=== PATIENT | male | born 1950 | race Caucasian/White ===

== ENCOUNTER → 2020-06-17 12:25 | Outpatient (CLI) | payer MEDICARE, OTHER, SELFPAY ==
[2020-06-17 13:57] LABS: Erythrocyte Sedimentation Rate 8 mm/hr (0-20)
[2020-06-17 14:11] LABS: CRP 4.54 mg/L (0.0-3.0)
== END ==
PROVIDERS: Visit Provider Internal Medicine Pulmonary Disease
DX: R06.00 Dyspnea, unspecified (principal)
CPT/HCPCS: 36415; 85379; 85652; 86140

== ENCOUNTER → 2020-06-25 08:13 | Outpatient (CLI) | payer MEDICARE, OTHER, SELFPAY ==
--- NOTE | 2020-06-25 08:15 | CT_ITS ---
STUDY: CT CHEST WITHOUT CONTRAST REASON FOR EXAM: Male, 70 years old. DYSPNEA, ELEV D DIMER RADIATION DOSAGE (If Supplied By Facility): CTDIvol = ( 11.57 ) mGy, DLP = ( 410.66 ) mGycm TECHNIQUE: Transaxial imaging was performed without the administration of intravenous contrast material. Multiplanar coronal and sagittal images were reformatted. Individualized dose optimization techniques were used for this CT. COMPARISON: None. FINDINGS: Hyperinflation. Mild emphysematous changes. Nonspecific increased interstitial markings in both lungs worse in the lower lobes with areas of honeycombing and scarring. Findings are in keeping with the chronic interstitial fibrosis. There is no demonstrated pleural abnormality. There are calcifications of the coronary arteries. There are multiple small lymph nodes within the mediastinum, which are normal in size and morphology most compatible with reactive lymph hyperplasia. Normal hilar regions. Normal unenhanced pulmonary arteries. Normal aorta arch and descending thoracic aorta. There are degenerative changes of the thoracic spine. Small hiatal hernia. CT/Chest without Contrast IMPRESSION: Hyperinflation and emphysematous changes with evidence of chronic interstitial fibrosis. Electronically Signed: Neftali Mcmahon MD at 9:33 EST , Service support ,
== END ==
PROVIDERS: Visit Provider Internal Medicine Pulmonary Disease
DX: R06.00 Dyspnea, unspecified (principal); R79.89 Other specified abnormal findings of blood chemistry
CPT/HCPCS: 71250

== ENCOUNTER → 2021-04-29 09:54 | Outpatient (CLI) | payer MEDICARE, OTHER, SELFPAY ==
[2021-04-29 12:19] LABS: Absolute Lymphocyte Count 1.72 X10^3/uL (0.83-4.51); Absolute Neutrophil Count 3.2 X10^3/uL (2.0-7.7); Basophil# 0.06 X10^3/uL; Eosinophil# 0.25 X10^3/uL; Eosinophils% 4.2 % (0-5); Hematocrit 39.2 % (40-54); Hemoglobin 13.2 g/dL (13.0-16.5); Lymphocyte # 1.72 X10^3/ul (0.83-4.51); Mean Corp Hgb Conc 33.7 g/dL (32-36); Mean Corpuscular Hgb 29.6 pg (27.0-32.0); Mean Corpuscular Volume 87.9 fL (80-94); Mean Platelet Vol. 9.5 fl (6.2-12.0); Monocyte# 0.68 X10^3/uL; Monocyte% 11.4 % (0-10); NRBC Flagged by Analyzer 0 % (0-5); Neutrophil # 3.21 X10^3/uL (2.7-7.7); Neutrophil % 54.1 % (47-70); Platelet Count 403 K/mm3 (150-450); RBC Distribution Width CV 13.2 % (11.6-14.6); RBC Distribution Width SD 42.9 fl (35.1-43.9); Red Blood Count 4.46 M/mm3 (4.6-6.2); White Blood Count 5.9 K/mm3 (4.4-11.0)
[2021-04-29 12:22] LABS: Erythrocyte Sedimentation Rate 25 mm/hr (0-20)
[2021-04-29 12:43] LABS: AST(SGOT) 17 U/L (15-37); Alanine Aminotransfer ALT/SGPT 27 U/L (16-61); Albumin, Serum 3.6 g/dL (3.2-5.0); Alkaline Phosphatase 94 U/L (45-117); Bilirubin, Direct 0.13 mg/dL (0.00-0.30); CRP 7.63 mg/L (0.0-3.0); Globulin 4.3 g/dL (2.2-4.2); Protein, Total 7.9 g/dL (6.4-8.2)
[2021-04-30 15:08] LABS: Anti-Scleroderma-70 AB <0.2 AI (0.0-0.9); SJOGREN'S Anti-SS-A test < 0.2 AI (0.0-0.9); SJOGREN'S Anti-SS-B test < 0.2 AI (0.0-0.9)
[2021-04-30 19:35] LABS: ANTINUCLEAR ANTIBODIES DIRECT Negative (Negative); Anti-dsDNA Ab 9 IU/mL (0-9)
[2021-05-01 18:07] LABS: Angiotensin Convert Enzyme 63 U/L (14-82); Cytoplasmic Ab (C-ANCA) <1:20 titer (Neg:<1:20)
[2021-05-02 08:20] LABS: Anti-Smooth Muscle ABS 12 Units (0-19); CCP IgG Antibodies 7 units (0-19); Perinuclear Ab (P-ANCA) <1:20 titer (Neg:<1:20)
== END ==
PROVIDERS: Referring Provider Internal Medicine Pulmonary Disease; Visit Provider Internal Medicine Pulmonary Disease
DX: J84.10 Pulmonary fibrosis, unspecified (principal); R06.00 Dyspnea, unspecified
CPT/HCPCS: 36415; 80076; 82164; 83516; 85025; 85652; 86038; 86140; 86200; 86225; 86235; 86256; 86431

== ENCOUNTER 2021-06-12 13:00 | Outpatient (CLI) | payer MEDICARE, SELFPAY ==
--- NOTE | 2021-06-12 13:06 | RAD_ITS ---
STUDY: X-RAY CHEST REASON FOR EXAM: Male, 71 years old. PULMONARY FIBROSIS TECHNIQUE: PA and lateral views of the chest. COMPARISON: Comparison is made with prior study dated 04/29/2021. FINDINGS: Stable increased interstitial markings at the lung bases worse on the left side with areas of confluence. This is in keeping with the scarring. There is no demonstrated pleural abnormality. Normal size heart. Normal mediastinum and rm. Normal visualized pulmonary arteries. Normal visualized aortic arch and descending thoracic aorta. There is demineralization of the osseous structures. Normal visualized ribs, clavicles, and shoulders. There is no demonstrated abnormality of the visualized soft tissue structures of the upper abdomen. RAD/Chest PA and Lateral IMPRESSION: Stable examination. Electronically Signed: Neftali Mcmahon MD at 15:47 EST , Service support ,
== END 2021-06-12 23:59 | disposition short-term general hospital (02) ==
PROVIDERS: PCP Nurse Practitioner Family; Referring Provider Internal Medicine Pulmonary Disease; Visit Provider Internal Medicine Pulmonary Disease
DX: J84.10 Pulmonary fibrosis, unspecified (principal)
CPT/HCPCS: 71046

== ENCOUNTER 2021-08-01 14:31 | Outpatient (CLI) | payer MEDICARE, SELFPAY ==
[2021-08-01 17:35] LABS: Hematocrit 40.1 % (40-54); Hemoglobin 13.8 g/dL (13.0-16.5); Mean Corp Hgb Conc 34.4 g/dL (32-36); Mean Corpuscular Hgb 30.9 pg (27.0-32.0); Mean Corpuscular Volume 89.7 fL (80-94); Mean Platelet Vol. 9.2 fl (6.2-12.0); POSITIVE COUNT YES; POSITIVE MORPHOLOGY YES; Platelet Count 399 K/mm3 (150-450); RBC Distribution Width CV 14.3 % (11.6-14.6); RBC Distribution Width SD 46.5 fl (35.1-43.9); Red Blood Count 4.47 M/mm3 (4.6-6.2)
[2021-08-01 17:39] LABS: Differential Indicated MANUAL DIFF
[2021-08-01 18:04] LABS: ALB/GLOB Ratio 0.9 RATIO (0.9-2.4); AST(SGOT) 15 U/L (15-37); Alanine Aminotransfer ALT/SGPT 25 U/L (16-61); Albumin, Serum 3.7 g/dL (3.2-5.0); Alkaline Phosphatase 78 U/L (45-117); Anion Gap 8 (5-15); BUN 35 mg/dL (7-18); BUN/Creat Ratio 24.8 RATIO (10-20); Calcium,Total 9.9 mg/dL (8.5-10.1); Chloride 101 mmol/L (98-107); Creatinine, Serum 1.41 mg/dL (0.70-1.30); EST Glomerular Filtration Rate 53 mL/min (>60); Est Glom Filt Rate - Afr Amer 64 mL/min (>60); Glucose 114 mg/dL (74-106); Potassium 4.3 mmol/L (3.5-5.1); Protein, Total 7.7 g/dL (6.4-8.2); Sodium Level 134 mmol/L (136-145)
[2021-08-01 18:58] LABS: Basophil 1 % (0-1); Lymphocyte 12 % (19-41); Metamyelocyte 1 % (0-1); Monocyte 6 % (0-10); Myelocyte 3 % (0-0); Neutrophil-Band 7 % (0-5); Neutrophil-Segmented 70 % (47-70); Total Cells Counted 100 (MANUAL DIFF)
[2021-08-01 19:01] LABS: Absolute Neutrophil Count 7.7 X10^3/uL (2.0-7.7)
[2021-08-01 19:02] LABS: Platelet Estimate ADEQUATE (ADEQ); Red Cell Morphology N CHROM NORMAL (NORM C&C)
[2021-08-01 19:03] LABS: Anisocytosis RARE; Macrocytosis RARE
[2021-08-04 08:30] LABS: Hepatitis B Surface Antibody Non-Reactive; Hepatitis B Surface Antigen Non-Reactive (Nonreactive); Hepatitis C Antibody Non-Reactive (Nonreactive)
[2021-08-05 10:15] LABS: Pathologist Review Reviewed
[2021-08-06 00:06] LABS: QNTFERON TB Mitogen Value 8.55 IU/mL (.); QNTFERON TB Nil Value 0.02 IU/mL (.); QNTFERON TB1+ Ag Value 0.02 IU/mL (.); QNTFERON TB2+ Ag Value 0.01 IU/mL (.)
[2021-08-06 13:27] LABS: CCP IgG Antibodies 9 units (0-19); QNTIFERON TB Positive Criteria Negative (Negative)
== END 2021-08-01 23:59 | disposition home or self-care (01) ==
LOC: MTLAB 14:32
PROVIDERS: PCP Nurse Practitioner Family; Referring Provider Internal Medicine Rheumatology; Visit Provider Internal Medicine Rheumatology
DX: M05.79 Rheumatoid arthritis with rheumatoid factor of multiple sites without organ or systems involvement (principal); J84.10 Pulmonary fibrosis, unspecified; M17.0 Bilateral primary osteoarthritis of knee; N18.9 Chronic kidney disease, unspecified; E03.9 Hypothyroidism, unspecified; E78.5 Hyperlipidemia, unspecified
CPT/HCPCS: 36415; 80053; 85025; 86200; 86431; 86480; 86706; 86803; 87340

== ENCOUNTER 2021-08-14 10:08 | Outpatient (CLI) | payer MEDICARE, SELFPAY ==
[2021-08-14 12:21] LABS: Hematocrit 37.4 % (40-54); Mean Corp Hgb Conc 34.8 g/dL (32-36); Mean Corpuscular Hgb 31.9 pg (27.0-32.0); Mean Corpuscular Volume 91.7 fL (80-94); Mean Platelet Vol. 9.5 fl (6.2-12.0); Platelet Count 337 K/mm3 (150-450); RBC Distribution Width SD 47.3 fl (35.1-43.9); Red Blood Count 4.08 M/mm3 (4.6-6.2); White Blood Count 11.4 K/mm3 (4.4-11.0)
[2021-08-14 12:30] LABS: D-Dimer Quantitative (DVT/PE) 0.66 FEU/ug/m (0.27-0.49)
[2021-08-14 12:43] LABS: AST(SGOT) 20 U/L (15-37); Alanine Aminotransfer ALT/SGPT 25 U/L (16-61); Albumin, Serum 3.2 g/dL (3.2-5.0); Alkaline Phosphatase 84 U/L (45-117); Anion Gap 7 (5-15); Bilirubin, Direct 0.14 mg/dL (0.00-0.30); Chloride 99 mmol/L (98-107); Globulin 4.4 g/dL (2.2-4.2); Protein, Total 7.6 g/dL (6.4-8.2); Sodium Level 131 mmol/L (136-145)
== END 2021-08-14 23:59 | disposition home or self-care (01) ==
LOC: MTLAB 10:10
PROVIDERS: PCP Nurse Practitioner Family; Referring Provider Internal Medicine Pulmonary Disease; Visit Provider Internal Medicine Pulmonary Disease
DX: J84.10 Pulmonary fibrosis, unspecified (principal); Z79.899 Other long term (current) drug therapy
CPT/HCPCS: 36415; 80051; 80076; 83880; 85027; 85379

== ENCOUNTER 2021-08-18 16:45 | Inpatient (IN) | payer MEDICARE, SELFPAY ==
[2021-08-18] VITALS (9 sets, daily range): BP systolic 115–141; BP diastolic 70–94; PULSE 65–87; RESP 18–24; TEMP 36.6; O2SAT 91–97; BMI 29.7; BMI 27.8
--- NOTE | 2021-08-18 17:48 | EKG12_ITS ---
Test Reason : SOB Blood Pressure : / mmHG Vent. Rate : 079 BPM Atrial Rate : 079 BPM P-R Int : 136 ms QRS Dur : 084 ms QT Int : 360 ms P-R-T Axes : 053 020 041 degrees QTc Int : 412 ms Normal sinus rhythm Normal ECG Confirmed by DORIS LINDSEY, ROSEANN ([id number]), web content editor MAKENZIE DURBIN ([id number]) on 08/21/2021 9:28:48 AM Referred By: PRATIMA Confirmed By:ROSEANN GEORGE MD
[2021-08-18 18:11] LABS: Absolute Lymphocyte Count 1.36 X10^3/uL (0.83-4.51); Absolute Neutrophil Count 9.3 X10^3/uL (2.0-7.7); Basophil# 0.07 X10^3/uL; Basophil% 0.6 % (0-1); Hematocrit 38.8 % (40-54); Hemoglobin 13.5 g/dL (13.0-16.5); Lymphocyte # 1.36 X10^3/ul (0.83-4.51); Lymphocyte % 11.8 % (19-41); Mean Corp Hgb Conc 34.8 g/dL (32-36); Mean Corpuscular Hgb 31.5 pg (27.0-32.0); Mean Corpuscular Volume 90.4 fL (80-94); Mean Platelet Vol. 8.8 fl (6.2-12.0); Monocyte# 0.29 X10^3/uL; Monocyte% 2.5 % (0-10); NRBC Flagged by Analyzer 0 % (0-5); Neutrophil % 80.9 % (47-70); Platelet Count 442 K/mm3 (150-450); RBC Distribution Width CV 13.6 % (11.6-14.6); RBC Distribution Width SD 45.2 fl (35.1-43.9); Red Blood Count 4.29 M/mm3 (4.6-6.2); White Blood Count 11.5 K/mm3 (4.4-11.0)
--- NOTE | 2021-08-18 18:28 | ED.VIS.DYS ---
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 He states that he is on 4 L at baseline and when he sitting is fine when he ambulates it drops into the 60s at home. He has been doing this for a couple of weeks. Today when he saw his fire hose curer he was sent to the ER out of concern that he he may have another cause for his symptoms besides pulmonary fibrosis. The patient does not report any chest pain, fever, cough, chills. He does not have any abdominal pain, nausea, vomiting. He states that he feels great. No history of DVT/PE. No lower extremity edema. Denies black or bloody stools. Patient does take 30 mg of prednisone daily. He states that this breathing issue has worsened over the last couple of weeks. PFSH PFSH Home Medications azithromycin [Zithromax Z-Sonu] 250 mg PO DAILY 08/18/21 [History Last Taken 08/18/21] bupropion HCl 100 mg PO QHS 08/18/21 [History Last Taken 08/17/21] citalopram 40 mg PO DAILY 08/18/21 [History Last Taken 08/18/21] pravastatin 40 mg PO DAILY 08/18/21 [History Last Taken 08/18/21] prednisone 30 mg PO DAILY 08/18/21 [History Last Taken 08/18/21] trazodone 50 mg PO QHS 08/18/21 [History Last Taken 08/17/21] Allergy/AdvReac Type Severity Reaction Status Date / Time No Known Allergies Allergy Verified 08/18/21 16:47 Social History Smoking Status: Former smoker ROS ROS ED Constitutional Constitutional ED: Denies chills or fever(s) Eyes Eyes: Denies blurry vision or diplopia ENT ENT ED: Denies rhinorrhea or sore throat Cardiovascular Cardiovascular: Denies chest pain Respiratory/Chest Respiratory/Chest: Reports dyspnea and dyspnea on exertion; Denies cough Gastrointestinal Gastrointestinal: Denies abdominal pain, nausea or vomiting Genitourinary Genitourinary ED: Denies dysuria or hematuria Musculoskeletal Musculoskeletal: Denies arthralgias, myalgias or neck pain Integumentary Denies rash Neurologic Neurologic: Denies headache(s) or paresthesias Psychiatric Psychiatric: Denies anxiety or depression EXAM Physical Exam Const Vital Signs: 08/18/21 16:46 08/18/21 17:26 08/18/21 17:33 Temperature 97.8 F Temperature Source Temporal Pulse Rate 87 81 Respiratory Rate 24 H 20 H Respiratory Effort Short of Breath Labored Respiratory Depth Normal Respiratory Pattern Tachypnea Blood Pressure 133/82 H 141/94 H Blood Pressure Mean 99 109 Pulse Ox 97 92 Oxygen Delivery Method Nasal Cannula Nasal Cannula Nasal Cannula Oxygen Flow Rate (L/min) 4 4 08/18/21 17:48 08/18/21 19:19 08/18/21 21:17 Temperature 97.8 F Temperature Source Temporal Pulse Rate 75 65 Respiratory Rate 20 H 18 Respiratory Effort Respiratory Depth Respiratory Pattern Blood Pressure 130/73 H 140/93 H Blood Pressure Mean 92 108 Pulse Ox 96 95 Oxygen Delivery Method Nasal Cannula Nasal Cannula Oxygen Flow Rate (L/min) 4 4 6 Positive well nourished General Appearance ED: NAD; Negative for pallor HEENT Reports moist mucous membranes atraumatic Eyes PERRL and EOMs intact bilaterally General Eye ED: Negative for pale conjunctiva Neck no lymphadenopathy and supple Resp Auscultation: rales diffuse Cardio regular rate and regular rhythm GI non-tender and non-distended Palpation: soft Extremity normal to inspection Neuro oriented x3, CN's II-XII intact bilaterally and no sensory deficits noted Sensorium / Orientation: alert Motor Exam: strength 5/5 throughout Psych mental status grossly normal Thought Process: normal thought process Skin General Skin Exam: Negative for jaundice or pallor Lesions: no lesions Rashes: no rashes MDM MDM MDM Narrative Medical decision making narrative: Patient sent into the hospital for dyspnea on exertion. He states his pulse ox readings have been 60%. This was confirmed in the pulmonology office. Otherwise he feels fine. Obtain an EKG on arrival and on my interpretation shows a normal sinus rhythm with a ventricular rate of 79 bpm without sign of ischemic change. CBC shows a slight white blood cell count elevation 11.5. Hemoglobin hematocrit are normal. Platelets within normal limits. D-dimer is -0.60. Patient was concerned because he was expecting a CTA from his fire hose curer I did perform this and this is negative for PE. It does show groundglass opacities and pulmonary fibrosis. Clinically the patient does not have any signs or symptoms of COVID-19 although it is read to look similar. Since patient is hypoxic with ambulation he is admitted to the hospital. Patient discussed with hospitalist. Patient transferred in stable condition. Impression: 1. Hypoxic respiratory failure Lab Data Attestation: I reviewed the patient's lab results. Labs: Laboratory Results - last 24 hr 08/18/21 08/18/21 08/18/21 18:00 18:00 18:00 WBC 11.5 H RBC 4.29 L Hgb 13.5 Hct 38.8 L MCV 90.4 MCH 31.5 MCHC 34.8 RDW Std Deviation 45.2 H RDW Coeff of Ivelisse 13.6 Plt Count 442 MPV 8.8 Immature Gran % (Auto) 4.200 H Neut % (Auto) 80.9 H Lymph % (Auto) 11.8 L Patrick % (Auto) 2.5 Eos % (Auto) 0.0 Baso % (Auto) 0.6 Absolute Neuts (auto) 9.3 H Absolute Lymphs (auto) 1.36 Nucleated RBC % 0 D-Dimer Quant (PE/DVT) 0.60 H* Sodium 132 L Potassium 5.0 Chloride 99 Carbon Dioxide 28.0 Anion Gap 5 BUN 26 H Creatinine 1.36 H Estim Creat Clear Calc 42.92 Est GFR (MDRD) Af Amer 67 Est GFR (MDRD) Non-Af 55 L BUN/Creatinine Ratio 19.1 Glucose 126 H Calcium 10.2 H Troponin I High Sens 5 B-Natriuretic Peptide 08/18/21 08/18/21 18:00 20:17 WBC RBC Hgb Hct MCV MCH MCHC RDW Std Deviation RDW Coeff of Ivelisse Plt Count MPV Immature Gran % (Auto) Neut % (Auto) Lymph % (Auto) Patrick % (Auto) Eos % (Auto) Baso % (Auto) Absolute Neuts (auto) Absolute Lymphs (auto) Nucleated RBC % D-Dimer Quant (PE/DVT) Sodium Potassium Chloride Carbon Dioxide Anion Gap BUN Creatinine Estim Creat Clear Calc Est GFR (MDRD) Af Amer Est GFR (MDRD) Non-Af BUN/Creatinine Ratio Glucose Calcium Troponin I High Sens 3 B-Natriuretic Peptide 3.7 Radiography Diagnostic Testing: Clinical Impression(s) from Imaging Studies Chest X-Ray 08/18/21 18:42 IMPRESSION: No acute cardiopulmonary disease Electronically Signed: Yevgeniy Padgett DO at 19:31 EDT Reading Location ID and State: [facility] / [place] Tel , Service support , Chest CTA 08/18/21 19:30 IMPRESSION: Normal CTA chest examination, without a demonstrated pulmonary embolism or arterial dissection. Diffuse patchy groundglass airspace disease bilaterally suggesting COVID Pneumonia Electronically Signed: Yevgeniy Padgett at 20:11 EDT Reading Location ID and State: [facility] / [place] Tel , Service support , Discharge Plan Disposition Disposition: Acute Care Hospital [facility] Discharge Date/Time: 08/18/21 21:34
[2021-08-18 18:32] LABS: BNP,B-Type NATRIURETIC PEPTIDE 3.7 pg/mL (0-100)
[2021-08-18 18:40] LABS: Anion Gap 5 (5-15); BUN 26 mg/dL (7-18); BUN/Creat Ratio 19.1 RATIO (10-20); Calcium,Total 10.2 mg/dL (8.5-10.1); Chloride 99 mmol/L (98-107); Creatinine, Serum 1.36 mg/dL (0.70-1.30); EST Glomerular Filtration Rate 55 mL/min (>60); Est Glom Filt Rate - Afr Amer 67 mL/min (>60); Estimated Creatinine Clearance 42.92 ml/min; Glucose 126 mg/dL (74-106); Sodium Level 132 mmol/L (136-145); Troponin-I HS 5 pg/mL (3.0-78.0)
--- NOTE | 2021-08-18 18:42 | RAD_ITS ---
STUDY: X-RAY CHEST REASON FOR EXAM: Male, 71 years old. chest pain TECHNIQUE: Single AP portable view of the chest. COMPARISON: 06/12/2021 FINDINGS: The lungs are clear and expanded. There is no demonstrated pleural abnormality. Normal size heart. Normal mediastinum and rm. Normal visualized pulmonary arteries. Normal visualized aortic arch and descending thoracic aorta. Normal visualized thoracic spine. Normal visualized ribs, clavicles, and shoulders. There is no demonstrated abnormality of the visualized soft tissue structures of the upper abdomen. RAD/Chest 1 View (Portable) IMPRESSION: No acute cardiopulmonary disease Electronically Signed: Yevgeniy Padgett DO at 19:31 EDT ,
--- NOTE | 2021-08-18 19:30 | CT_ITS ---
STUDY: CTA CHEST REASON FOR EXAM: Male, 71 years old. Hypoxic respiratory failure RADIATION DOSAGE (If Supplied By Facility): CTDIvol = ( 25.26 ) mGy, DLP = ( 410.81 ) mGycm TECHNIQUE: The examination was performed with the intravenous administration of IV 100mL Isovue-370. Post-processing of the angiographic images was performed, with multiplanar reformation and 3D reconstruction. Individualized dose optimization techniques were used for this CT. COMPARISON: None. FINDINGS: Normal enhancement of the main pulmonary artery and right and left pulmonary arteries. Normal enhancement of the bilateral peripheral pulmonary arteries. There is no demonstrated pulmonary embolism. Normal thoracic aorta and visualized great vessels. There is no demonstrated aortic dissection. Normal heart and pericardium. Normal mediastinum. Normal hilar regions. Normal visualized trachea and bronchi. Lungs are mildly hypoinflated. Diffuse patchy groundglass airspace disease bilaterally indicating COVID pneumonia. Subtle areas of chronic interstitial prominence in the lung bases. Normal chest wall structures. Normal osseous structures. Normal visualized upper abdomen. CT/CTA Chest W/WO Contrast IMPRESSION: Normal CTA chest examination, without a demonstrated pulmonary embolism or arterial dissection. Diffuse patchy groundglass airspace disease bilaterally suggesting COVID Pneumonia Electronically Signed: Yevgeniy Padgett DO at 20:11 EDT ,
--- NOTE | 2021-08-18 20:49 | HP.PCM_ITS ---
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 Patient has significant past medical history of pulmonary fibrosis for which she is on 4 L of oxygen routinely. The patient states over the past 2 weeks however, he has had a significant decline and has desaturated to 60% with any exertion. While at rest the patient remains well saturated he continues to become quickly hypoxic with any activity which is not his usual routine. The patient denies any chest pain, fevers or chills and/or nausea and/or vomiting. He has recently been on 30 mg prednisone daily along with oxygen at [address] angiogram was negative for acute findings, white blood cell count was mildly elevated with a slight left shift. He will be admitted for observation to the general medical floor for further management. He is followed by Dr Ramirez. [facility] Home Medications azithromycin [Zithromax Z-Sonu] mg PO 08/18/21 [History Last Taken Unknown] bupropion HCl 100 mg PO DAILY 08/18/21 [History Last Taken Unknown] citalopram 40 mg PO DAILY 08/18/21 [History Last Taken Unknown] pravastatin 40 mg PO QHS 08/18/21 [History Last Taken Unknown] prednisone 30 mg PO DAILY 08/18/21 [History Last Taken Unknown] trazodone 50 mg PO QHS 08/18/21 [History Last Taken Unknown] Allergy/AdvReac Type Severity Reaction Status Date / Time No Known Allergies Allergy Verified 08/18/21 16:47 Social History Smoking Status: Former smoker ROS Constitutional Constitutional: Denies anorexia, chills or fever(s) Eyes Eyes: Denies blurry vision ENT HEENT: Denies abnormal hearing Cardiovascular Cardiovascular: Denies chest pain Respiratory/Chest Respiratory/Chest: Reports cough and shortness of breath at rest Gastrointestinal Gastrointestinal: Denies abdominal pain Genitourinary Genitourinary: Denies dysuria Musculoskeletal Musculoskeletal: Denies back pain Integumentary Integumentary: Denies dry skin Neurologic Neurologic: Denies abnormal gait Psychiatric Psychiatric: Denies anxiety Vital Signs Vital Signs Vital Signs: 08/18/21 16:46 08/18/21 17:26 08/18/21 17:33 Temperature 97.8 F Temperature Source Temporal Pulse Rate 87 81 Respiratory Rate 24 H 20 H Respiratory Effort Short of Breath Labored Respiratory Depth Normal Respiratory Pattern Tachypnea Blood Pressure 133/82 H 141/94 H Blood Pressure Mean 99 109 Pulse Ox 97 92 Oxygen Delivery Method Nasal Cannula Nasal Cannula Nasal Cannula Oxygen Flow Rate (L/min) 4 4 08/18/21 17:48 08/18/21 19:19 Temperature Temperature Source Pulse Rate 75 Respiratory Rate 20 H Respiratory Effort Respiratory Depth Respiratory Pattern Blood Pressure 130/73 H Blood Pressure Mean 92 Pulse Ox 96 Oxygen Delivery Method Nasal Cannula Nasal Cannula Oxygen Flow Rate (L/min) 4 4 Weight Weight: 173 lb Body Mass Index (BMI) 29.7 Physical Exam Const oriented x3 and no apparent distress General Appearance: cooperative HEENT normocephalic and head/scalp atraumatic Eyes PERRL and EOMs intact bilaterally Neck supple Lymph Lymphatic: no lymphadenopathy noted Resp Auscultation: diminished lung sounds bilateral; Negative for rhonchi or wheezes Cardio regular rate, regular rhythm, S1 normal heart sound, S2 normal heart sound and no murmurs GI normal to inspection, nondistended, normoactive bowel sounds Extremity Negative for no calf tenderness Skin General Skin Exam: turgor normal Neuro CN's II-XII intact bilaterally Psych affect normal Results Lab / Micro Data Result Diagrams: 08/18/21 18:00 08/18/21 18:00 Labs: Laboratory Results - last 24 hr 08/18/21 18:00: WBC 11.5 H, RBC 4.29 L, Hgb 13.5, Hct 38.8 L, MCV 90.4, MCH 31.5, MCHC 34.8, RDW Std Deviation 45.2 H, RDW Coeff of Ivelisse 13.6, Plt Count 442, MPV 8.8, Immature Gran % (Auto) 4.200 H, Neut % (Auto) 80.9 H, Lymph % (Auto) 11.8 L, Mcdonald % (Auto) 2.5, Eos % (Auto) 0.0, Baso % (Auto) 0.6, Absolute Neuts (auto) 9.3 H, Absolute Lymphs (auto) 1.36, Nucleated RBC % 0 08/18/21 18:00: D-Dimer Quant (PE/DVT) 0.60 H* 08/18/21 18:00: Sodium 132 L, Potassium 5.0, Chloride 99, Carbon Dioxide 28.0, Anion Gap 5, BUN 26 H, Creatinine 1.36 H, Estim Creat Clear Calc 42.92, Est GFR (MDRD) Af Amer 67, Est GFR (MDRD) Non-Af 55 L, BUN/Creatinine Ratio 19.1, Glucose 126 H, Calcium 10.2 H, Troponin I High Sens 5 08/18/21 18:00: B-Natriuretic Peptide 3.7 Radiology Impression Chest X-Ray 08/18/21 18:42 IMPRESSION: No acute cardiopulmonary disease Electronically Signed: Yevgeniy EspinozaDO darrel at 19:31 EDT Reading Location ID and State: [facility] / [place] Tel , Service support , Chest CTA 08/18/21 19:30 IMPRESSION: Normal CTA chest examination, without a demonstrated pulmonary embolism or arterial dissection. Diffuse patchy groundglass airspace disease bilaterally suggesting COVID Pneumonia Electronically Signed: Yevgeniy Padgett DO at 20:11 EDT Reading Location ID and State: [facility] / [place] Tel , Service support , Assessment & Plan Assessment/Plan (1) Pulmonary fibrosis: (2) Depression: (3) Hyperlipidemia: PLAN: 1 pulmonary fibrosis with hypoxia?admit patient for observation to general medical floor, IV Solu-Medrol and DC oral prednisone, oxygen per protocol, Levaquin 50 mg IV daily, DuoNeb INH every 4 hours as needed. We will continue to contact Dr. Ramirez regarding continuity of care as an outpatient. A rapid Covid test was requested prior to transferring the patient to the floor. 2. Depression?stable continue his Wellbutrin 3. Hyperlipidemia?stable continue statin medication 4. DVT prophylaxis?low molecular weight heparin Charges/Coding Visit Charges OBSV E&M: 63212 Initial observation care L2
--- NOTE | 2021-08-18 21:11 | CM.ED ---
RN CM Assessment Introduced role of RN CM to patient and patient Hugo Mead at bedside.? Patient is alert, oriented and able?to participate in RN CM Assessment. ?Care providers, pharmacy, and demographics verified. Admit Dx: Hypoxia Re-Admit: No Barriers/Issues: None. Patient still works. Patient has desat to 60's with exertion, has been on steroids- failed outpatient tx. D-dimer elevated but CTA neg for PE- Groundglass airspace b/l sugg of Covid PNA- discussed with Dr Carter and ordered Covid test as Dr Ramirez may Bronch patient tomorrow but does not suspect Covid. PCP: [employer]- Mary Hartman Specialists: Pulm- James, RA- New to provider here in [place] Preferred Pharmacy: [facility] Insurance: [facility] Rx Benefit:?Yes LNOK: Hugo Mead LW/HPOA: None, AD information provided with SW rack card. Aware can complete inpatient or outpatient. Living Arrangements:? Lives with and adult son in a 2SH. Bedroom on 2nd fl with 13 steps and railing. 4 steps to enter home. ADL?s: Independent with ambulation and ADLs, patient is still currently working. Transportation: Both patient and drive, will likely transport upon hospital DC. DME: Home O2 4lpm NC baseline with [employer]- continuous, has home concentrator and portable tank that is full. HHC: None SNF: None Goal: home and denies any issues or concerns at this time with going home. Aware RNCM will continue to follow should any needs arise. DC PLAN: Home with no anticipated needs identified at this time. KEELEY Palumbo
[2021-08-18 21:17] LABS: Troponin-I HS 3 pg/mL (3.0-78.0)
[2021-08-18] MEDS: levoFLOXacin IV 500 MG/100 ML BAG 100 MG IV (22:08)
[2021-08-18] MEDS: 0.9% Saline Lock 10 ML Syringe IV (22:08)
[2021-08-18] MEDS: Pravastatin 40 MG Tablet PO (22:12)
[2021-08-18] MEDS: buPROPion 100 MG Tablet PO (22:12)
[2021-08-18] MEDS: traZODone 50 MG Tablet PO (22:12)
[2021-08-19] VITALS (10 sets, daily range): BP systolic 132–152; BP diastolic 76–78; PULSE 67–85; RESP 18–22; TEMP 36.3–36.7; O2SAT 95–97
[2021-08-19] MEDS: 0.9% Saline Lock 10 ML Syringe IV ×3 (06:04→21:08)
[2021-08-19 06:16] LABS: Absolute Lymphocyte Count 1.29 X10^3/uL (0.83-4.51); Absolute Neutrophil Count 8.4 X10^3/uL (2.0-7.7); Basophil# 0.04 X10^3/uL; Basophil% 0.4 % (0-1); Hematocrit 36.9 % (40-54); Hemoglobin 12.9 g/dL (13.0-16.5); Lymphocyte # 1.29 X10^3/ul (0.83-4.51); Lymphocyte % 12.3 % (19-41); Mean Corpuscular Hgb 31.6 pg (27.0-32.0); Mean Corpuscular Volume 90.4 fL (80-94); Mean Platelet Vol. 8.7 fl (6.2-12.0); Monocyte# 0.25 X10^3/uL; Monocyte% 2.4 % (0-10); NRBC Flagged by Analyzer 0 % (0-5); Neutrophil # 8.44 X10^3/uL (2.7-7.7); Neutrophil % 80.4 % (47-70); Platelet Count 429 K/mm3 (150-450); RBC Distribution Width CV 13.6 % (11.6-14.6); RBC Distribution Width SD 45.2 fl (35.1-43.9); Red Blood Count 4.08 M/mm3 (4.6-6.2); White Blood Count 10.5 K/mm3 (4.4-11.0)
[2021-08-19 06:43] LABS: Anion Gap 7 (5-15); BUN 33 mg/dL (7-18); BUN/Creat Ratio 23.9 RATIO (10-20); Calcium,Total 9.9 mg/dL (8.5-10.1); Chloride 102 mmol/L (98-107); Creatinine, Serum 1.38 mg/dL (0.70-1.30); EST Glomerular Filtration Rate 54 mL/min (>60); Est Glom Filt Rate - Afr Amer 66 mL/min (>60); Glucose 152 mg/dL (74-106); Potassium 4.7 mmol/L (3.5-5.1); Sodium Level 132 mmol/L (136-145)
[2021-08-19] MEDS: Ipratropium/Albuterol Sulfate 3 ML AMPUL.NEB INHALATION ×4 (07:29→18:36)
[2021-08-19 08:27] LABS: BNP,B-Type NATRIURETIC PEPTIDE 5.2 pg/mL (0-100)
--- NOTE | 2021-08-19 09:12 | CASEMGMT ---
According to [facility] [employer] [facility]'s website, the following tertiary facilities are in network: [facility], [place], [facility], [place], [facility], [facility], [place], [facility] and .
[2021-08-19] MEDS: Citalopram 40 MG TABLET PO (11:31)
[2021-08-19] MEDS: Heparin Injection (Vial) 5,000 UNIT/ML VIAL 5000 UNIT SC ×2 (11:31→21:09)
[2021-08-19] MEDS: buPROPion 100 MG Tablet PO (11:31)
--- NOTE | 2021-08-19 14:21 | PN.HOSP_ITS ---
Subjective Subjective Patient seen and examined. was by his bedside. He had no active complaints and felt well. He was on his baseline 4L of oxygen. He denied any wheezing, palpitations, chest pain, nausea or vomiting. Review of systems is otherwise negative. 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 Patient awaiting a bed. Objective Data Objective Data Vital Signs: Vital Signs Temp Pulse Resp BP Pulse Ox 98.1 F 80 18 151/78 H 96 08/19/21 14:04 08/19/21 14:04 08/19/21 14:04 08/19/21 14:04 08/19/21 14:04 Oxygen Flow Rate (L/min) 4 Oxygen Delivery Method Nasal Cannula Weight: 162 lb 4.163 oz Body Mass Index (BMI) 27.8 Intake & Output: Intake and Output for Last 24 Hours 08/17/21 08/18/21 08/19/21 23:59 23:59 23:59 Intake Total 127 / 127 950 / 950 Balance 127 / 127 950 / 950 Lab / Micro Data Result Diagrams: 08/19/21 06:00 08/19/21 06:00 Labs: Laboratory Results - last 24 hr 08/18/21 18:00: WBC 11.5 H, RBC 4.29 L, Hgb 13.5, Hct 38.8 L, MCV 90.4, MCH 31.5, MCHC 34.8, RDW Std Deviation 45.2 H, RDW Coeff of Ivelisse 13.6, Plt Count 442, MPV 8.8, Immature Gran % (Auto) 4.200 H, Neut % (Auto) 80.9 H, Lymph % (Auto) 11.8 L, [place] % (Auto) 2.5, Eos % (Auto) 0.0, Baso % (Auto) 0.6, Absolute Neuts (auto) 9.3 H, Absolute Lymphs (auto) 1.36, Nucleated RBC % 0 08/18/21 18:00: D-Dimer Quant (PE/DVT) 0.60 H* 08/18/21 18:00: Sodium 132 L, Potassium 5.0, Chloride 99, Carbon Dioxide 28.0, Anion Gap 5, BUN 26 H, Creatinine 1.36 H, Estim Creat Clear Calc 42.92, Est GFR (MDRD) Af Amer 67, Est GFR (MDRD) Non-Af 55 L, BUN/Creatinine Ratio 19.1, Glucose 126 H, Calcium 10.2 H, Troponin I High Sens 5 08/18/21 18:00: B-Natriuretic Peptide 3.7 08/18/21 20:17: Troponin I High Sens 3 08/19/21 06:00: B-Natriuretic Peptide 5.2 08/19/21 06:00: WBC 10.5, RBC 4.08 L, Hgb 12.9 L, Hct 36.9 L, MCV 90.4, MCH 31. 6, MCHC 35.0, RDW Std Deviation 45.2 H, RDW Coeff of Ivelisse 13.6, Plt Count 429, MPV 8.7, Immature Gran % (Auto) 4.500 H, Neut % (Auto) 80.4 H, Lymph % (Auto) 12.3 L, [place] % (Auto) 2.4, Eos % (Auto) 0.0, Baso % (Auto) 0.4, Absolute Neuts (auto) 8.4 H, Absolute Lymphs (auto) 1.29, Nucleated RBC % 0 08/19/21 06:00: Sodium 132 L, Potassium 4.7, Chloride 102, Carbon Dioxide 23.0, Anion Gap 7, BUN 33 H, Creatinine 1.38 H, Estim Creat Clear Calc 42.30, Est GFR (MDRD) Af Amer 66, Est GFR (MDRD) Non-Af 54 L, BUN/Creatinine Ratio 23.9 H, Glu cose 152 H, Calcium 9.9 Micro: Microbiology 08/18/21 21:45 Nasal Secretion SARS-CoV-2 Antigen (Rapid) - Final Radiography Diagnostic Testing: Radiology Impression Chest X-Ray 08/18/21 18:42 IMPRESSION: No acute cardiopulmonary disease Electronically Signed: Yevgeniy Padgett DO at 19:31 EDT , Chest CTA 08/18/21 19:30 IMPRESSION: Normal CTA chest examination, without a demonstrated pulmonary embolism or arterial dissection. Diffuse patchy groundglass airspace disease bilaterally suggesting COVID Pneumonia Electronically Signed: Yevgeniy Padgett DO at 20:11 EDT , Physical Exam Const alert, oriented x3 and no apparent distress Exam Limitations: no limitations HEENT head/scalp atraumatic and moist oral mucous membranes Head and Scalp: normocephalic Eyes PERRL, EOMs intact bilaterally and conjunctivae normal Neck no lymphadenopathy, supple and no JVD Resp Resp Narrative: mildly diminished breath sounds bibasally, no wheezes or crackles. On 4L of oxygen which is his baseline GI normal to inspection, nondistended, normoactive bowel sounds and soft to palpation Extremity normal to inspection, full ROM and no clubbing, cyanosis or edema Peripheral Pulses: Yes pulses 2+ throughout Skin no rashes or lesions noted Neuro oriented x3 and CN's II-XII intact bilaterally Sensorium / Orientation: awake and alert Psych affect normal Assessment & Plan Assessment/Plan (1) Pulmonary fibrosis: PLAN: #Acute on chronic hypoxic respiratory failure due to worsening pulmonary fibrosis. * patient now on his baseline 4L of oxygen today * due to his worsening hypoxia, his greens laborer believes patient should be transferred to [facility] for lung biopsy and further management * on IV solumedrol. breathing treatment with bronchodilators * titrate oxygen to maintain sats >90% * on IV levofloxacin * #Hyperlipidemia: On pravastatin * #Depression: on bupropion and cialopram #Hypothyroidism: on synthroid DVT prophylaxis: heparin Disposition; awaiting transfer to [facility] Charges/Coding Visit Charges Inpatient E&M: 59109 Subs Hosp L2
[2021-08-19] MEDS: MethylPREDNISolone 125 MG/2 ML Vial 60 MG IV (21:09)
[2021-08-19] MEDS: levoFLOXacin IV 250 MG/50 ML BAG 50 MG IV (21:10)
[2021-08-19] MEDS: traZODone 50 MG Tablet PO (21:10)
[2021-08-19] MEDS: Pravastatin 40 MG Tablet PO (21:10)
[2021-08-20] VITALS (9 sets, daily range): BP systolic 129–153; BP diastolic 63–88; PULSE 71–78; RESP 18–20; TEMP 36.4–36.8; O2SAT 95–97
[2021-08-20] MEDS: MethylPREDNISolone 125 MG/2 ML Vial 60 MG IV ×3 (05:40→21:19)
[2021-08-20] MEDS: 0.9% Saline Lock 10 ML Syringe IV ×3 (05:40→21:20)
[2021-08-20] MEDS: Heparin Injection (Vial) 5,000 UNIT/ML VIAL 5000 UNIT SC ×2 (10:06→21:19)
[2021-08-20] MEDS: Citalopram 40 MG TABLET PO (10:06)
[2021-08-20] MEDS: buPROPion 100 MG Tablet PO (10:06)
[2021-08-20] MEDS: Ipratropium/Albuterol Sulfate 3 ML AMPUL.NEB INHALATION ×3 (10:13→19:12)
--- NOTE | 2021-08-20 12:55 | PN.HOSP_ITS ---
Subjective Subjective Patient seen and examined. He had no active complaints and had an uneventful night. He remains on his baseline 4 L of oxygen. Review of symptoms otherwise negative. He still awaiting transfer to [facility] or [facility]. Objective Data Objective Data Vital Signs: Vital Signs Temp Pulse Resp BP Pulse Ox 97.9 F 78 20 H 134/88 H 95 08/20/21 10:04 08/20/21 10:20 08/20/21 10:20 08/20/21 10:04 08/20/21 10:04 Oxygen Flow Rate (L/min) 4 Oxygen Delivery Method Nasal Cannula Weight: 162 lb 4.163 oz Body Mass Index (BMI) 27.8 Intake & Output: Intake and Output for Last 24 Hours 08/18/21 08/19/21 08/20/21 23:59 23:59 23:59 Intake Total 127 / 127 1500 / 1900 520 / 520 Balance 127 / 127 1500 / 1900 520 / 520 Lab / Micro Data Result Diagrams: 08/19/21 06:00 08/19/21 06:00 Micro: Microbiology 08/18/21 21:45 Nasal Secretion SARS-CoV-2 Antigen (Rapid) - Final Physical Exam Const alert, oriented x3 and no apparent distress General Appearance: cooperative Exam Limitations: no limitations HEENT normocephalic, head/scalp atraumatic and moist oral mucous membranes Head and Scalp: normocephalic Eyes PERRL, EOMs intact bilaterally and conjunctivae normal Neck no lymphadenopathy, supple and no JVD Lymph Lymphatic: no lymphadenopathy noted Resp Resp Narrative: mildly diminished breath sounds bibasally, no wheezes or crackles. On 4L of oxygen which is his baseline Auscultation: diminished lung sounds bilateral; Negative for rhonchi or wheezes Cardio regular rate, regular rhythm, S1 normal heart sound, S2 normal heart sound and no murmurs GI normal to inspection, nondistended, normoactive bowel sounds and soft to palpation Extremity normal to inspection, full ROM and no clubbing, cyanosis or edema; Negative for no calf tenderness Peripheral Pulses: Yes pulses 2+ throughout Skin no rashes or lesions noted General Skin Exam: turgor normal Neuro oriented x3 and CN's II-XII intact bilaterally Sensorium / Orientation: awake and alert Psych affect normal Assessment & Plan Assessment/Plan (1) Pulmonary fibrosis: PLAN: #Acute on chronic hypoxic respiratory failure due to worsening pulmonary fibrosis. * patient remains on his baseline 4L of oxygen * due to his worsening hypoxia, his cotton stripper believes patient should be transferred to [facility] for lung biopsy and further management * on IV solumedrol. breathing treatment with bronchodilators * titrate oxygen to maintain sats >90% * on IV levofloxacin * #Hyperlipidemia: On pravastatin * #Depression: on bupropion and cialopram #Hypothyroidism: on synthroid DVT prophylaxis: heparin Disposition; still awaiting transfer to [facility] Charges/Coding Visit Charges Inpatient E&M: 12296 Subs Hosp L2
[2021-08-20] MEDS: Levothyroxine 125 MCG Tablet PO (15:58)
--- NOTE | 2021-08-20 17:36 | PCM.PROGNOTE ---
- Physical Exam Vitals/I&O's: Vital Signs Temp Pulse Resp BP Pulse Ox 98.1 F 71 18 140/63 H 96 08/20/21 15:03 08/20/21 15:15 08/20/21 15:15 08/20/21 15:03 08/20/21 15:03 Oxygen Flow Rate (L/min) 4 Oxygen Delivery Method Nasal Cannula Weight: 73.6 kg Body Mass Index (BMI) 27.8 Intake and Output for Last 24 Hours 08/18/21 08/19/21 08/20/21 23:59 23:59 23:59 Intake Total 127 / 127 1500 / 1900 920 / 920 Balance 127 / 127 1500 / 1900 920 / 920 General: Oriented x3, Cooperative, No apparent distress HEENT: Atraumatic, PERRLA, EOMI, Normocephalic Oral: Moist Mucosa, No Gingival or Mucosal Lesions/ Ulcerations Neck: Supple, No JVD, Negative Carotid Bruits Lungs: - - Bilateral fine rales 75%, no wheeze no cough no sputum, good chest expansion no friction rub Cardiovascular: Regular rate, Normal S1, Normal S2, No murmurs Abdomen: Bowel Sounds Present, Soft, Non Tender Extremities: No edema, Capillary Refill Less than 3 Seconds Skin: No rashes, No breakdown Musculoskeletal: No Tenderness to Palpation of Joints or Extremities Lymphatic: No Cervical, Supraclavicular, or Inguinal Adenopathy, Cervical Adenopathy Neurological: Cranial nerves II-XII grossly intact Psych/Mental Status: Normal Affect, Appropriate Microbiology Past 72 Hours 08/18/21 21:45 Nasal Secretion SARS-CoV-2 Antigen (Rapid) - Final Current Medications Albuterol/Ipratropium (Ipratropium/Albuterol Sulfate 3 Ml Ampul.Neb) 3 ml INHALATION Q4HWA.RT [facility] Last Admin: 08/20/21 14:26 Dose: 3 ml Documented by: Bupropion HCl (Bupropion 100 Mg Tablet) 100 mg PO DAILY [facility] Last Admin: 08/20/21 10:06 Dose: 100 mg Documented by: Citalopram Hydrobromide (Citalopram 40 Mg Tablet) 40 mg PO DAILY [facility] Last Admin: 08/20/21 10:06 Dose: 40 mg Documented by: Heparin Sodium (Porcine) (Heparin Injection (Vial) 5,000 Unit/Ml Vial) 5,000 unit SC Q12 [facility] Last Admin: 08/20/21 10:06 Dose: 5,000 unit Documented by: Levofloxacin (Levaquin Iv) 250 mg in 50 mls @ 50 mls/hr IV 2200 [facility] Last Infusion: 08/19/21 22:10 Dose: Infused Documented by: Sodium Chloride () 250 mls @ 15 mls/hr IV .[id number] PRN PRN Reason: Saline Flush Last Infusion: 08/18/21 23:56 Dose: 0 mls/hr Documented by: Sodium Chloride () 250 mls @ 15 mls/hr IV .[id number] PRN PRN Reason: Additional IVPB Infusion Levothyroxine Sodium (Levothyroxine 125 Mcg Tablet) 125 mcg PO DAILY@0600 [facility] Last Admin: 08/20/21 15:58 Dose: 125 mcg Documented by: Methylprednisolone (Methylprednisolone 125 Mg/2 Ml Vial) 60 mg IV Q8 [facility] Last Admin: 08/20/21 14:15 Dose: 60 mg Documented by: Pravastatin Sodium (Pravastatin 40 Mg Tablet) 40 mg PO QHS [facility] Last Admin: 08/19/21 21:10 Dose: 40 mg Documented by: Sodium Chloride (0.9% Saline Lock 10 Ml Syringe) 10 - 40 ml IV UD PRN PRN Reason: SALINE FLUSH Last Admin: 08/20/21 14:15 Dose: 10 ml Documented by: Trazodone HCl (Trazodone 50 Mg Tablet) 50 mg PO QHS [facility] Last Admin: 08/19/21 21:10 Dose: 50 mg Documented by: Patient Problems: Active and Suspected Problems (Last Updated 08/18/21 @ 22:02 by Vikash Schuler) Pulmonary fibrosis (Acute) Depression (Acute) Hyperlipidemia (Acute) Medical Necessity - Tobacco Use Smoking Status: Former smoker Assessment/Plan Background fibrosis 1 year, acceleration of groundglass disease with worsening gas exchange, dyspnea in the absence of any new active conditions with the use of oral prednisone at 30. Failure of outpatient therapy for inflammatory lung disease. Recommendation is unchanged: Tertiary care facility for open lung biopsy, multifaceted team to review CT imaging pathology Treatment and make recommendations about long-term immunotherapy. CellCept versus rituximab For now continue high-dose steroids, supplemental O2, fluids, pulmonary toilet Subcutaneous anticoagulation is reasonable, the patient could be transferred in 1 to 2 days Continue antibiotics in the event of a superinfection To tertiary care facilities have been contacted and the transfer staff have been updated, awaiting transfer-Via ambulance-Ground All Active Problems (Last Updated 08/18/21 @ 22:02 by Vikash Schuler) Pulmonary fibrosis (Acute) Depression (Acute) Hyperlipidemia (Acute)
[2021-08-20] MEDS: Pravastatin 40 MG Tablet PO (21:19)
[2021-08-20] MEDS: traZODone 50 MG Tablet PO (21:19)
[2021-08-20] MEDS: levoFLOXacin IV 250 MG/50 ML BAG 50 MG IV (21:19)
[2021-08-21] VITALS (7 sets, daily range): BP systolic 136–164; BP diastolic 66–83; PULSE 62–82; RESP 16–18; TEMP 36.2–36.9; O2SAT 92–100
[2021-08-21] MEDS: 0.9% Saline Lock 10 ML Syringe IV ×2 (06:23→14:52)
[2021-08-21] MEDS: Levothyroxine 125 MCG Tablet PO (06:23)
[2021-08-21] MEDS: MethylPREDNISolone 125 MG/2 ML Vial 60 MG IV ×2 (06:24→14:52)
[2021-08-21] MEDS: Ipratropium/Albuterol Sulfate 3 ML AMPUL.NEB INHALATION ×3 (07:27→15:23)
[2021-08-21] MEDS: Heparin Injection (Vial) 5,000 UNIT/ML VIAL 5000 UNIT SC (09:25)
[2021-08-21] MEDS: buPROPion 100 MG Tablet PO (09:25)
[2021-08-21] MEDS: Citalopram 40 MG TABLET PO (09:25)
--- NOTE | 2021-08-21 12:01 | PN.HOSP_ITS ---
Subjective Subjective Patient seen and examined. He had no active complaints and felt well. He had an uneventful night. Review of systems is otherwise negative. He is on 3L of oxygen. He is still awaiting transfer. Objective Data Objective Data Vital Signs: Vital Signs Temp Pulse Resp BP Pulse Ox 97.8 F 80 18 164/79 H 96 08/21/21 09:30 08/21/21 11:34 08/21/21 11:34 08/21/21 09:30 08/21/21 09:30 Oxygen Flow Rate (L/min) 3 Oxygen Delivery Method Nasal Cannula Weight: 162 lb 4.163 oz Body Mass Index (BMI) 27.8 Intake & Output: Intake and Output for Last 24 Hours 08/19/21 08/20/21 08/21/21 23:59 23:59 23:59 Intake Total 1500 / 1900 970 / 970 Balance 1500 / 1900 970 / 970 Lab / Micro Data Result Diagrams: 08/19/21 06:00 08/19/21 06:00 Micro: Microbiology 08/18/21 21:45 Nasal Secretion SARS-CoV-2 Antigen (Rapid) - Final Physical Exam Const alert, oriented x3 and no apparent distress General Appearance: cooperative Exam Limitations: no limitations HEENT normocephalic, head/scalp atraumatic and moist oral mucous membranes Eyes PERRL, EOMs intact bilaterally and conjunctivae normal Neck no lymphadenopathy, supple and no JVD Lymph Lymphatic: no lymphadenopathy noted Resp Resp Narrative: mildly diminished breath sounds bibasally, no wheezes or crackles. On 3L of oxygen today Auscultation: diminished lung sounds bilateral; Negative for rhonchi or wheezes Cardio regular rate, regular rhythm, S1 normal heart sound, S2 normal heart sound and no murmurs GI normal to inspection, nondistended, normoactive bowel sounds and soft to palpation Extremity normal to inspection, full ROM and no clubbing, cyanosis or edema; Negative for no calf tenderness Peripheral Pulses: Yes pulses 2+ throughout Skin no rashes or lesions noted General Skin Exam: turgor normal Neuro oriented x3 and CN's II-XII intact bilaterally Sensorium / Orientation: awake and alert Psych affect normal Assessment & Plan Assessment/Plan (1) Pulmonary fibrosis: PLAN: #Acute on chronic hypoxic respiratory failure due to worsening pulmonary fibrosis. * patient on 3L of oxygen today. * due to his worsening hypoxia, his credit review officer believes patient should be transferred to [facility] for lung biopsy and further management * on IV solumedrol. breathing treatment with bronchodilators * titrate oxygen to maintain sats >90% * on IV levofloxacin * #Hyperlipidemia: On pravastatin * #Depression: on bupropion and cialopram #Hypothyroidism: on synthroid DVT prophylaxis: heparin Disposition; still awaiting transfer to [facility] Charges/Coding Visit Charges Inpatient E&M: 70631 Subs Hosp L2
--- NOTE | 2021-08-21 16:54 | DS.PCM_ITS ---
Providers Date of Admission: 08/18/21 Primary Care Physician: RASHMI Fitzpatrick Consultations 08/18/21 21:48 Consult: Bus Greaser / Pulmonary Medicine Routine Consulting Provider: Brandyn Ramirez V Reason for Consult: pulmonary fibrosis EMERGENT Consult: No MD Notified: Yes Date Notified: 08/18/21 Time Notified: 21:09 Method of Notification: Verbal Reason For Visit: HYPOXIA Diagnosis Discharge Diagnosis (1) Pulmonary fibrosis: Status: Acute Code(s): J84.10 - Pulmonary fibrosis, unspecified Medications at Discharge Home Medications azithromycin [Zithromax Z-Sonu] 250 mg PO DAILY 08/18/21 bupropion HCl 100 mg PO QHS 08/18/21 citalopram 40 mg PO DAILY 08/18/21 pravastatin 40 mg PO DAILY 08/18/21 prednisone 30 mg PO DAILY 08/18/21 trazodone 50 mg PO QHS 08/18/21 levothyroxine 125 mcg PO DAILY 08/19/21 Hospital Course Operations None Procedures None Summary of Care Provided Minutes Spent on Discharge: 50 Hospital Course: Patient is a 71-year-old male with a past medical history which includes pulmonary fibrosis for which he is on 4 L of oxygen on account of chronic respiratory failure from this disease. He had been having worsening shortness of breath with to see his control system manager on the day of admission. In the control system manager office, he was noted to be desaturating to 60% with exertion. Patient has been on prednisone 30 mg daily. CTA of the chest was negative for any PE. He was admitted to be managed for acute on chronic hypoxic respiratory failure due to worsening of his pulmonary fibrosis. He was started on steroids and started on IV Levaquin. He has been neurologist reviewed him and determined that he needed transfer to a tertiary center for lung biopsy and further work-up as needed. Transfer process was initiated and patient was transferred to [facility] on 08/21/2021. Patient was seen and examined prior to discharge. He had no acute complaints and felt well. Review of systems otherwise negative. Labs and vitals reviewed. Home medication reviewed and reconciled. Physical Exam Const alert, oriented x3 and no apparent distress General Appearance: cooperative and comfortable Exam Limitations: no limitations HEENT normocephalic, head/scalp atraumatic, hearing grossly normal bilaterally and moist oral mucous membranes Eyes PERRL, EOMs intact bilaterally and conjunctivae normal Neck no lymphadenopathy, supple and no JVD Lymph Lymphatic: no lymphadenopathy noted Resp Resp Narrative: mildly diminished breath sounds bibasally, no wheezes or crackles. On 3L of oxygen today Auscultation: diminished lung sounds bilateral; Negative for rhonchi or wheezes Cardio regular rate, regular rhythm, S1 normal heart sound, S2 normal heart sound and no murmurs GI normal to inspection, nondistended, normoactive bowel sounds and soft to palpation Extremity normal to inspection, full ROM and no clubbing, cyanosis or edema; Negative for no calf tenderness Skin no rashes or lesions noted General Skin Exam: turgor normal Neuro oriented x3 and CN's II-XII intact bilaterally Sensorium / Orientation: awake and alert Psych affect normal Weight / BMI Weight Weight: 162 lb 4.163 oz Body Mass Index (BMI) 27.8 ABG / Lab / Microbiology Data Result Diagrams: 08/19/21 06:00 08/19/21 06:00 Microbiology: Microbiology 08/18/21 21:45 Nasal Secretion SARS-CoV-2 Antigen (Rapid) - Final Meaningful Use Info Meaningful Use Diagnoses (Choose all that apply): None applicable Discharge Plan Admission Admit Date/Time: 08/18/21 21:29 Attending Provider: Suma Toro Primary Care Provider: Mary Hartman NP Consulting Providers: Brandyn Ramirez V Discharge Orders/Prescriptions Prescriptions: No Action prednisone 10 mg Tablet 30 mg PO DAILY RF: 0 pravastatin 40 mg Tablet 40 mg PO DAILY RF: 0 Zithromax Z-Sonu 250 mg Capsule 250 mg PO DAILY RF: 0 citalopram 40 mg Tablet 40 mg PO DAILY RF: 0 trazodone 50 mg Tablet 50 mg PO QHS RF: 0 bupropion HCl 100 mg Tablet 100 mg PO QHS RF: 0 levothyroxine 125 mcg Tablet 125 mcg PO DAILY RF: 0 Referrals / Follow Up: Mary Hartman NP, CLAUDIA-C [Primary Care Provider] - Disposition Disposition (needs filled in before D/C Order can be placed): [facility] Charges/Coding Visit Charges Inpatient E&M: 08501 Disch Hosp
--- NOTE | 2021-08-21 17:36 | NURSING ---
report called to Teresa at [facility], updated on transport time of 1899
== END 2021-08-21 21:30 | disposition short-term general hospital (02) | DRG 197 ==
LOC: ED 20:53 → MS3 21:15
PROVIDERS: Admitting Provider Family Medicine; Emergency Provider Student in an Organized Health Care Education/Training Program; PCP Nurse Practitioner Family; Visit Provider Student in an Organized Health Care Education/Training Program
DX: J84.10 Pulmonary fibrosis, unspecified (principal); J96.11 Chronic respiratory failure with hypoxia; Z99.81 Dependence on supplemental oxygen; E03.9 Hypothyroidism, unspecified; E78.5 Hyperlipidemia, unspecified; J98.4 Other disorders of lung; F32.A Depression, unspecified; Z87.891 Personal history of nicotine dependence
CPT/HCPCS: 36415; 71045; 71275; 80048; 83880; 84484; 85025; 85379; 87811; 93005; 94640; 94762; 99285; J7050; A4216

== ENCOUNTER → 2022-05-14 | Outpatient (CLI) | payer MEDICARE, SELFPAY ==
--- NOTE | 2022-05-14 13:02 | RAD_ITS ---
INDICATION: COUGH EXAMINATION/TECHNIQUE: X-RAY - XR Chest 2 Views COMPARISON: 08/18/2021. FINDINGS: Chronic interstitial lung changes. Tortuous and calcified thoracic aorta. The heart is mildly enlarged. No pleural effusion or pneumothorax. Degenerative changes of the thoracic spine. RAD/Chest PA and Lateral IMPRESSION: Increased interstitial markings in the lung bases may be in part due to chronic interstitial lung disease, however cannot rule out a concomitant acute process such as infection or edema. Electronically Signed: Jose Sandoval MD at 18:11 [facility] ,
== END | disposition home or self-care (01) ==
LOC: RAD 12:56
PROVIDERS: PCP Nurse Practitioner Family; Referring Provider Internal Medicine Pulmonary Disease; Visit Provider Internal Medicine Pulmonary Disease
DX: R05.9 Cough, unspecified (principal); I77.1 Stricture of artery; I51.7 Cardiomegaly; R06.00 Dyspnea, unspecified
CPT/HCPCS: 71046

== ENCOUNTER 2022-07-10 10:23 | Emergency (ER) | payer MEDICARE, SELFPAY ==
[2022-07-10] VITALS (7 sets, daily range): BP systolic 103–131; BP diastolic 69–91; PULSE 79–108; RESP 20–26; TEMP 36.3–37; O2SAT 94–100; BMI 27.4
--- NOTE | 2022-07-10 10:33 | EKG12_ITS ---
Test Reason : SOB Blood Pressure : / mmHG Vent. Rate : 091 BPM Atrial Rate : 091 BPM P-R Int : 120 ms QRS Dur : 078 ms QT Int : 342 ms P-R-T Axes : 068 029 010 degrees QTc Int : 420 ms Normal sinus rhythm Nonspecific ST and T wave abnormality Abnormal ECG Confirmed by DORIS LINDSEY, ROSEANN ([id number]), medical transcription editor MAKENZIE DURBIN ([id number]) on 07/13/2022 12:38:53 PM Referred By: Confirmed By:ROSEANN GEORGE MD
--- NOTE | 2022-07-10 10:34 | ED.VIS.DYS ---
HPI History of Present Illness Chief Complaint: Shortness of Breath Informant: patient and spouse/S.O. Onset/Context/Timing Onset: Days Context: gradual Timing: Continuous and Waxes and wanes Quality: Positive for Dyspnea on exertion; Negative for Orthopnea, PND or Wheezing Current Severity: Mild Maximum Severity: Severe Worsened by: Exertion; Not Worsened By Lying flat or Coughing Relieved by: Nothing Associated Symptoms cough, rhinorrhea and clear sputum; Negative for post nasal drip, ear pain, fever, sore throat, subjective, chills or sweats Chest Pain: Positive for None Narrative Narrative: Patient is a 72-year-old male with history of hypothyroidism, hypercholesterolemia, interstitial lung disease PE Risk Factors: Negative for Cancer, OCP + Smoking + > 35, Prior DVT or PE, Recent immobilization, Recent surgery or Recent travel Prior similar symptoms: Yes (Pulmonary interstitial lung disease) Recent Illness/Hospitalization: No PFSH COUNT INCLUDES THE [facility] Medical History Depression Former smoker Hyperlipidemia On home oxygen therapy Pulmonary fibrosis Pulmonary fibrosis Home Medications azithromycin 250 mg capsule 250 mg PO DAILY shortness of breath 08/18/21 [History Last Taken 08/18/21] bupropion HCl 100 mg tablet 100 mg PO QHS depression 08/18/21 [History Last Taken 08/17/21] citalopram 40 mg tablet 40 mg PO DAILY depression 08/18/21 [History Last Taken 08/18/21] pravastatin 40 mg tablet 40 mg PO DAILY cholesterol 08/18/21 [History Last Taken 08/18/21] prednisone 10 mg tablet 30 mg PO DAILY steroid 08/18/21 [History Last Taken 08/18/21] trazodone 50 mg tablet 50 mg PO QHS sleep 08/18/21 [History Last Taken 08/17/21] levothyroxine 125 mcg tablet 125 mcg PO DAILY Check with primary doctor 08/19/21 [History Last Taken 08/18/21 07:00] Allergy/AdvReac Type Severity Reaction Status Date / Time No Known Allergies Allergy Verified 08/18/21 16:47 Surgical History H/O knee surgery H/O shoulder surgery Social History (Updated 07/10/22 @ 10:[address] Eriberto Baca MD) household members: spouse Smoking Status: Former smoker substance use type: does not use ROS ROS ED Constitutional Constitutional ED: Denies chills, fever(s), sweats or weight loss Eyes Eyes: Denies blurry vision, change in vision or diplopia ENT ENT ED: Denies ear pain, rhinorrhea or sore throat Cardiovascular Cardiovascular: Denies chest pain, orthopnea, palpitations, paroxysmal nocturnal dyspnea or racing heartbeat Respiratory/Chest Respiratory/Chest: Reports cough, dyspnea, dyspnea on exertion and sputum; Denies orthopnea or paroxysmal nocturnal dyspnea Gastrointestinal Gastrointestinal: Denies abdominal pain, diarrhea, melena, nausea or vomiting Genitourinary Genitourinary ED: Denies dysuria, hematuria or urinary frequency Musculoskeletal Musculoskeletal: Denies arthralgias, back pain, myalgias or neck pain Integumentary Denies Abrasions or rash Neurologic Neurologic: Denies headache(s) or paresthesias Endocrine Endocrinology: Denies cold intolerance, heat intolerance, polydipsia or polyuria Hematologic/Lymphatic Hematologic/Lymphatic: Denies easy bleeding, easy bruising or lymphadenopathy EXAM Physical Exam Const Vital Signs: 07/10/22 10:23 07/10/22 10:25 07/10/22 10:37 Temperature 97.4 F L 97.4 F L Temperature Source Temporal Temporal Pulse Rate 108 H 92 Respiratory Rate 26 H 24 H Respiratory Effort Short of Breath Respiratory Depth Normal Respiratory Pattern Tachypnea Blood Pressure 103/91 H 126/69 H Blood Pressure Mean 95 88 Pulse Ox 94 99 Oxygen Delivery Method Nasal Cannula Nasal Cannula Nasal Cannula Oxygen Flow Rate (L/min) 4 4 4 07/10/22 11:50 07/10/22 12:09 07/10/22 12:38 Temperature 98.6 F 98.6 F Temperature Source Oral Oral Pulse Rate 84 80 79 Respiratory Rate 21 H 26 H 20 H Respiratory Effort Respiratory Depth Respiratory Pattern Blood Pressure 131/76 H 122/80 H 126/86 H Blood Pressure Mean 94 94 99 Pulse Ox 100 100 99 Oxygen Delivery Method Nasal Cannula Nasal Cannula Nasal Cannula Oxygen Flow Rate (L/min) 4 4 4 Positive well nourished Constitutional Narrative: Patient becomes tachypneic with minimal activity. He is on continuous oxygen at 4 L. His special forces warrant officer is Dr. Brandyn Ramirez. General Appearance ED: Negative for NAD or pallor HEENT Reports moist mucous membranes HEENT Narrative: Atraumatic normocephalic. Ears normal. Nares patent without discharge. Posterior pharynx is normal. Eyes PERRL and EOMs intact bilaterally General Eye ED: Negative for pale conjunctiva or scleral icterus Neck no lymphadenopathy, supple, no meningeal signs and no JVD Neck Narrative: Trachea is midline. There is no inspiratory expiratory stridor. Resp No normal respiratory effort and No clear to auscultation bilaterally Resp Narrative: Are inspiratory rales noted right and left posterior lung benson. There is no expiratory wheezing. There is no egophony or increased vocal fremitus. Cardio regular rhythm, S1 normal heart sound, S2 normal heart sound and no murmurs Rate: tachycardic GI non-tender, non-distended and no masses Auscultation: normoactive bowel sounds Palpation: soft Back/Spine no CVA tenderness and normal to inspection Extremity normal to inspection Extremity Narrative: There is no clubbing, acrocyanosis or swelling noted. There is no asymmetry, swelling, discoloration, leg vein distention, palpable cords or tenderness along the distribution of the deep venous system. Neuro oriented x3 and CN's II-XII intact bilaterally [place] Coma Scale: document GCS findings Spontaneous Obeys Commands Oriented 15 Sensorium / Orientation: alert Speech: speech normal Gait (Neuro): Negative for normal gait Psych mental status grossly normal Skin no wounds and No skin turgor normal General Skin Exam: Negative for jaundice or pallor Lesions: no lesions MDM MDM MDM Narrative Medical decision making narrative: Patient presents with increased shortness of breath. This may represent exacerbation patient's interstitial pulmonary disease with upper respiratory infection, pneumonia, anginal equivalent or PE. EKG was obtained to evaluate for acute coronary ischemic changes. Troponin was obtained as well since she has had symptoms for days. CBC to evaluate white count rule out anemia. Basic metabolic panel to determine renal function. Since patient does not have asthma and is problem is pulmonary interstitial fibrosis he was not treated with albuterol or DuoNeb. Clinically doubt pulmonary embolus. Based on age patient has not PERC negative. Wells score for DVT is -2. Review of prior records indicates patient's never had a cardiac stress test or cardiac catheterization. He has had pulmonary test done. He was admitted April 2022 for COVID pneumonia. Patient was reassessed at 1245. Patient's respiratory rate is normal. He does not appear labored. Patient was informed of his results. Patient to follow-up with Dr. Ramirez Lab Data Attestation: I reviewed the patient's lab results. Lab results narrative: CBC is remarkable for macrocytic anemia with a hemoglobin 11.4 and an MCV of 102.7. There is a slight shift 77 segs which may be due to the fact the patient is on 30 mg of his own. Hemoglobin is lower than baseline. BUN to creatinine ratio is not elevated. BUN is lower than baseline. Troponin is normal. This is with symptoms of 3 days. Since value is less than 7 negative predictive value is 100% for cardiac disease per algorithm. Labs: Laboratory Results - last 24 hr 07/10/22 07/10/22 10:40 10:40 WBC 5.3 RBC 3.30 L Hgb 11.4 L Hct 33.9 L MCV 102.7 H MCH 34.5 H MCHC 33.6 RDW Std Deviation 56.8 H RDW Coeff of Ivelisse 15.1 H Plt Count 179 MPV 9.1 Immature Gran % (Auto) 9.800 H Neut % (Auto) 76.9 H Lymph % (Auto) 2.8 L Mcintosh % (Auto) 9.0 Eos % (Auto) 0.2 Baso % (Auto) 1.3 H Absolute Neuts (auto) 4.1 Absolute Lymphs (auto) 0.15 L Nucleated RBC % 0.4 Platelet Estimate ADEQUATE Anisocytosis 1+ Macrocytosis 1+ Sodium 139 Potassium 3.6 Chloride 104 Carbon Dioxide 27.0 Anion Gap 8 BUN 23 H Creatinine 1.15 Estim Creat Clear Calc 50.05 Est GFR (MDRD) Af Amer 81 Est GFR (MDRD) Non-Af 67 BUN/Creatinine Ratio 20.0 Glucose 132 H Calcium 9.3 Troponin I High Sens 6 Radiography Chest X-Ray - ED: 2 View and Read by ED Physician (2 view chest x-ray was compared to May 14, 2022. Inspiratory volume is limited. There are fibrotic changes noted. There is slight difference in technique. There is no obvious infiltrate or effusion noted. There are no significant abnormalities of the osseous structures. There is no perihi) Diagnostic Testing: Clinical Impression(s) from Imaging Studies Chest X-Ray 07/10/22 10:40 IMPRESSION: Stable increased markings at the lung bases with areas of confluence in keeping with a chronic interstitial fibrosis. Electronically Signed: Neftali Mcmahon MD at 11:12 EST , EKG Initial EKG: Attestation: I personally reviewed and interpreted this EKG as follows: Interpretation: Sinus Rhythm (Rate is 91. There is slight ST abnormality noted in leads II and III. This may represent artifact. We will compare to prior. [place] interval is 120 msQRS duration 78 ms. QT duration 342 ms. [place] is normal) Prior: Unchanged (The EKG was compared to August 18, 2001. The slight changes noted in lead II are essentially unchanged.) Discharge Plan Triage Chief Complaint: Shortness of Breath ED Provider: Eriberto Baca Dx/Rx/DC Orders Clinical Impression: Acute dyspnea, Diffuse interstitial pulmonary fibrosis, Anemia, macrocytic Instructions: Anemia, ED Dyspnea Prescriptions: No Action prednisone 10 mg Tablet 30 mg PO DAILY pravastatin 40 mg Tablet 40 mg PO DAILY Zithromax Z-Sonu 250 mg Capsule 250 mg PO DAILY citalopram 40 mg Tablet 40 mg PO DAILY trazodone 50 mg Tablet 50 mg PO QHS bupropion HCl 100 mg Tablet 100 mg PO QHS levothyroxine 125 mcg Tablet 125 mcg PO DAILY Primary Care Provider: Mary Hartman NP Referrals: Brandyn Ramirez MD [Med Staff - Active Staff] - 5-7 Days Mary Hartman NP, [employer] [Primary Care Provider] - Disposition Disposition: Home, Self Care
--- NOTE | 2022-07-10 10:40 | RAD_ITS ---
STUDY: X-RAY CHEST REASON FOR EXAM: Male, 72 years old. Dyspnea, dyspnea on exertion history of interstitial lung disease TECHNIQUE: PA and lateral views of the chest. COMPARISON: Comparison is made with prior study dated 05/14/2022. FINDINGS: EKG electrodes are seen. Stable increased markings at the lung bases with areas of confluence suggestive of a chronic interstitial fibrosis. There is been no change since prior study. Stable blunting of both cosmetic angles. Normal size heart. Normal mediastinum and rm. Normal visualized pulmonary arteries. There is atherosclerotic calcification of the aortic arch with tortuosity. Normal visualized thoracic spine. There is degenerative osteoarthritis of the bilateral shoulders. There is no demonstrated abnormality of the visualized soft tissue structures of the upper abdomen. RAD/Chest PA and Lateral IMPRESSION: Stable increased markings at the lung bases with areas of confluence in keeping with a chronic interstitial fibrosis. Electronically Signed: Neftali Mcmahon MD at 11:12 EST ,
[2022-07-10 10:48] LABS: Hematocrit 33.9 % (40-54); Hemoglobin 11.4 g/dL (13.0-16.5); Mean Corp Hgb Conc 33.6 g/dL (32-36); Mean Corpuscular Hgb 34.5 pg (27.0-32.0); Mean Corpuscular Volume 102.7 fL (80-94); Mean Platelet Vol. 9.1 fl (6.2-12.0); NRBC Flagged by Analyzer 0.4 % (0-5); POSITIVE COUNT YES; POSITIVE DIFFERENTIAL YES; POSITIVE MORPHOLOGY YES; Platelet Count 179 K/mm3 (150-450); RBC Distribution Width CV 15.1 % (11.6-14.6); RBC Distribution Width SD 56.8 fl (35.1-43.9); White Blood Count 5.3 K/mm3 (4.4-11.0)
[2022-07-10 10:52] LABS: Differential Indicated SCAN CRITERIA MET
[2022-07-10 11:06] LABS: Anion Gap 8 (5-15); BUN 23 mg/dL (7-18); Calcium,Total 9.3 mg/dL (8.5-10.1); Chloride 104 mmol/L (98-107); Creatinine, Serum 1.15 mg/dL (0.70-1.30); EST Glomerular Filtration Rate 67 mL/min (>60); Est Glom Filt Rate - Afr Amer 81 mL/min (>60); Estimated Creatinine Clearance 50.05 ml/min; Glucose 132 mg/dL (74-106); Potassium 3.6 mmol/L (3.5-5.1); Sodium Level 139 mmol/L (136-145); Troponin-I HS 6 pg/mL (3.0-78.0)
[2022-07-10 11:34] LABS: Anisocytosis 1+; Macrocytosis 1+; Platelet Estimate ADEQUATE (ADEQ)
[2022-07-11 01:58] LABS: Scan Smear per Review Criteria MANUAL DIFF
[2022-07-11 01:59] LABS: Absolute Neutrophil Count 4.7 X10^3/uL (2.0-7.7); Neutrophil # 4.73 X10^3/uL (2.7-7.7)
[2022-07-11 02:00] LABS: Absolute Lymphocyte Count 0.27 X10^3/uL (0.83-4.51); Lymphocyte 5 % (19-41); Lymphocyte # 0.27 X10^3/ul (0.83-4.51); Metamyelocyte 4 % (0-1); Monocyte 6 % (0-10); Myelocyte 1 % (0-0); Neutrophil-Band 3 % (0-5); Neutrophil-Segmented 81 % (47-70); Total Cells Counted 100 (MANUAL DIFF)
[2022-07-13 12:46] LABS: Pathologist Review Reviewed
== END 2022-07-10 13:06 | disposition home or self-care (01) ==
PROVIDERS: Emergency Provider Emergency Medicine; PCP Nurse Practitioner Family; Visit Provider Emergency Medicine
DX: J84.10 Pulmonary fibrosis, unspecified (principal); Z87.891 Personal history of nicotine dependence; E78.00 Pure hypercholesterolemia, unspecified; D53.9 Nutritional anemia, unspecified; Z86.16 Personal history of COVID-19; E03.9 Hypothyroidism, unspecified; F32.A Depression, unspecified; Z99.81 Dependence on supplemental oxygen
CPT/HCPCS: 71046; 80048; 84484; 85025; 93005; 99284; A4216

== ENCOUNTER 2022-08-06 07:57 | Outpatient (CLI) | payer MEDICARE, SELFPAY ==
[2022-08-06] MEDS: 0.9% NaCl Peripheral Flush Adult/Peds IV (08:06)
[2022-08-06] MEDS: Acetaminophen 500 MG Tablet 1000 MG PO (08:18)
[2022-08-06] MEDS: DiphenhydrAMINE 25 MG Capsule 50 MG PO (08:19)
[2022-08-06] MEDS: 0.9% NaCl IVPB Med Flush (250 mL) 15 ML IV (08:20)
[2022-08-06] MEDS: MethylPREDNISolone 125 MG/2 ML Vial 100 MG IV (08:22)
[2022-08-06 08:27] VITALS: BP 125/65; PULSE 92; RESP 18; TEMP 36.7; O2SAT 100; BMI 28.6
== END 2022-08-06 23:59 | disposition home or self-care (01) ==
LOC: MEDOUTP 07:58
PROVIDERS: PCP Nurse Practitioner Family; Referring Provider Internal Medicine Pulmonary Disease; Visit Provider Internal Medicine Pulmonary Disease
DX: M05.10 Rheumatoid lung disease with rheumatoid arthritis of unspecified site (principal)
CPT/HCPCS: 96413; 96415; J7040; J7050; J9312; A4216

== ENCOUNTER → 2022-08-20 | Outpatient (CLI) | payer MEDICARE, SELFPAY ==
[2022-08-20 08:10] VITALS: BP 149/82; PULSE 106; RESP 18; TEMP 36.2; O2SAT 95; BMI 27.7
[2022-08-20] MEDS: Acetaminophen 500 MG Tablet 1000 MG PO (08:13)
[2022-08-20] MEDS: DiphenhydrAMINE 25 MG Capsule 50 MG PO (08:13)
[2022-08-20] MEDS: 0.9% NaCl IVPB Med Flush (250 mL) 15 ML IV (08:14)
[2022-08-20] MEDS: MethylPREDNISolone 125 MG/2 ML Vial 100 MG IV (08:22)
[2022-08-20] MEDS: 0.9% NaCl Peripheral Flush Adult/Peds IV (08:22)
== END | disposition home or self-care (01) ==
LOC: MEDOUTP 07:58
PROVIDERS: PCP Nurse Practitioner Family; Referring Provider Internal Medicine Pulmonary Disease; Visit Provider Internal Medicine Pulmonary Disease
DX: M05.10 Rheumatoid lung disease with rheumatoid arthritis of unspecified site (principal)
CPT/HCPCS: 96365; 96372; J7040; J7050; J9312; A4216